=== PATIENT | male | born 1950 | race Caucasian/White ===

== ENCOUNTER 2018-11-03 08:28 | Inpatient (IN) ==
[2018-11-03 08:48] LABS: BASO# 0.09 X1000 (0.0-0.2); BASO% 0.8 % (0.0-0.8); EOS# 0.41 X1000 (0.0-0.7); EOS% 3.6 % (0.0-10.0); HEMOGLOBIN 12.9 g/dL (14.0-18.0); IMM GRAN# 0.04 X1000 (0.0-0.04); IMM GRAN% 0.4 % (0.0-0.5); LYMPH# 2.67 X1000 (1.2-3.4); LYMPH% 23.6 % (20.5-51.1); MCH 32.1 PG (27-31); MCHC 32.3 g/dL (33-37); MCV 99.5 FL (81-99); MONO# 1.02 X1000 (0.11-0.59); MPV 9.9 FL (7.4-10.4); NEUT# 7.06 X1000 (1.4-6.5); NEUT% 62.6 % (42.2-75.2); PLT 322 X1000 (130-400); RBC 4.02 XMIL (4.7-6.1); RDW 12.8 % (11.5-14.5); WBC 11.29 X1000 (4.8-10.8)
[2018-11-03 09:21] LABS: ALBUMIN 4.4 g/dL (3.5-5.0); CALCIUM 9.1 mg/dL (8.8-10.2); CREATININE 1.3 mg/dL (0.7-1.2); POTASSIUM 4.5 mmol/L (3.5-5.1); TOTAL BILIRUBIN 0.4 mg/dL (0.20-1.00); TOTAL PROTEIN 7.6 g/dL (6.3-8.3)
--- NOTE | 2018-11-03 10:14 | EKG Report ---
Test Performed on : 11/03/2018 08:51:38 AM Test Reason : vomiting Blood Pressure : / mmHG Vent. Rate : 081 BPM Atrial Rate : 081 BPM P-R Int : 210 ms QRS Dur : 150 ms QT Int : 400 ms P-R-T Axes : 061 086 045 degrees QTc Int : 464 ms Sinus rhythm. with 1st degree AV block. Right bundle branch block Abnormal ECG When compared with ECG of 08-JUL-2017 13:46, premature ventricular complexes. are no longer present Unconfirmed Result
--- NOTE | 2018-11-03 10:22 | Diag Imaging Result Doc PS360 ---
US ABDOMEN-COMPLETE - 11/03/2018 INDICATION: hx of AAA, discomfort COMPARISON: 06/21/2018 FINDINGS: There has been significant increase in size of the fusiform infrarenal abdominal aortic aneurysm. This now measures 4.2 x 4.1 cm. No fluid collection. Severe fatty change of the liver. The gallbladder, pancreas, and spleen are normal. There is a left renal cyst measuring 2.5 cm. Otherwise both kidneys are normal. Common bile duct measures 4 mm. IVC and main portal vein are patent. IMPRESSION: 1. Enlarging abdominal aortic aneurysm. Consider a CT angiogram of the aorta to exclude a dissection. No fluid collections. 2. Severe hepatic steatosis. Electronically signed by Compa Champagne 11/03/2018 10:19 AM
--- NOTE | 2018-11-03 10:23 | Diag Imaging Result Doc PS360 ---
CHEST-1 VIEW - 11/03/2018 INDICATION: vomiting COMPARISON: None FINDINGS: The lungs are normally expanded and clear. Heart size and mediastinal contours are normal. No pneumothorax or pleural effusion. IMPRESSION: Negative exam. Electronically signed by Compa Champagne 11/03/2018 10:20 AM
--- NOTE | 2018-11-03 11:30 | Diag Imaging Result Doc PS360 ---
EXAM: CT ABDOMEN/PELVIS W/O CONTRAST 11/03/2018 HISTORY: enlarging AAA, allergic to contrast TECHNIQUE: This exam was performed using automated exposure control, adjustment of mA or kV according to patient size, and/or use of iterative reconstruction technique. COMMENT: There is minimal platelike atelectasis or fibrosis in the right costophrenic sulcus. This was not present on 06/25/2017. There is some perinephric stranding bilaterally. This was also present on the previous study. There are vascular calcifications in both kidneys. There is extensive atherosclerotic calcification in the abdominal aorta. There is an infrarenal abdominal aortic aneurysm measuring 4.6 x 4.5 cm. There are bilateral common iliac stents. No periaortic inflammatory changes or fluid collections are demonstrated. There is no evidence of significant adenopathy. Compared to the previous examination the AP diameter of the aorta has increased from 4.2 to 4.6 cm and the transverse from 4 to 4.5 cm. There is no evidence of appendicitis. There is no evidence of free fluid. The urinary bladder is not distended. There are degenerative disc changes throughout the lumbar spine. The regional skeleton is stable in appearance. IMPRESSION: Slight enlargement in abdominal aortic aneurysm. Otherwise stable since 06/25/2017. Electronically signed by Frederic Russo 11/03/2018 11:28 AM
[2018-11-03 11:35] LABS: BILIRUBIN URINE 1+ (NEGATIVE); BLOOD URINE NEGATIVE (NEGATIVE); CLARITY CLEAR (CLEAR); COLOR AMBER; GLUCOSE URINE NEGATIVE (NEGATIVE); KETONE URINE 1+(Small) mg/dL (NEGATIVE); LEUKOCYTES URINE TRACE (NEGATIVE); NITRITE URINE POSITIVE (NEGATIVE); PH URINE 6.5; PROTEIN URINE 1+(30 mg/dL) mg/dL (NEGATIVE); UROBILINOGEN URINE 1 mg/dL
[2018-11-03] MEDS ORDERED: ROCEPHIN 1 GM in NS 50 ML IV ONE (11:36)
[2018-11-03 11:48] LABS: URINE BACTERIA 2+ /HFP; URINE CAST NONE SEEN /LPF; URINE CRYSTAL NONE SEEN /HPF; URINE EPITHELIAL CELLS <10 /HPF (<10); URINE RBC <10 /HPF (<10); URINE SOURCE CLEAN CATCH; URINE WBC <10 /HPF (<10); URINE YEAST NONE SEEN /HPF
--- NOTE | 2018-11-03 11:56 | PROVIDER DOCUMENTATION ---
This chart was entered by Nela Rahman Scribe, acting as scribe for Joe Babb MD. HPI-Abdominal Pain/GI Problem - General Chief Complaint: Nausea/Vomiting Stated Complaint: N/V Time Seen by Provider: 11/03/18 08:31 Source: patient Allergies/Adverse Reactions: Patient Allergies Allergy/AdvReac Type Severity Reaction Status Date / Time Iodinated Contrast Media Allergy Severe ANAPHYLAXIS Verified 07/09/17 07:12 [Iodinated Contrast Media - IV Dye] Home Medications: Home Medication List Medication Instructions Recorded Confirmed Last Taken Type BENAZEpril [Lotensin] 20 mg PO DAILY 09/20/13 11/03/18 07/08/17 09:00 History Celecoxib [Celebrex] 200 mg PO DAILY 09/20/13 11/03/18 07/08/17 09:00 History Citalopram Hydrobromide [Celexa] 20 mg PO DAILY 09/20/13 11/03/18 07/08/17 09:00 History Ergocalciferol (Vitamin D2) 50,000 unit PO SA 07/08/17 11/03/18 07/04/17 History [Vitamin D2] Glucosam/Chond/Hyalu/Cf Borate 1 each PO DAILY 07/08/17 11/03/18 07/08/17 09:00 History [Move Free Joint Health Tablet] Multivitamin with Minerals [One 1 each PO DAILY 07/08/17 11/03/18 07/08/17 09:00 History Daily Adults] Tramadol HCl/Acetaminophen 1 each PO BID PRN PRN 07/08/17 11/03/18 07/08/17 09:00 History [Tramadol-Acetaminophn 37.5-325] - History of Present Illness-ABD Nature of Presenting Problems: 68 yom presents to the ed with c/o dizziness, diaphoresis and n/v x1 this am @ 0800am. pt sts had similar sx 1 week prior and it resolved on its on and no tx was sought. He also noted that he has been feeling intermittent "shocks" in his chest that radiate through his body when he has these episodes. pt on exam is back to baseline and feels well. pt is nontoxic in appearance. pt has hx of AAA and is checked every 6 months and has had no change with last check up. Abdominal Pain Onset Location: reports: generalized abdomen Quality of Pain: reports: cramping (with nausea) Severity in ED: reports: moderate Onset/Duration: reports: this morning (0800am) Timing: reports: gone now Activities at Onset: reports: light activity Exposure to sick contacts?: No Modifying Factors: improves with: nothing Associated Symptoms: reports: chest pain (shocks from chest radiating through body), diaphoresis, dizziness, nausea, vomiting. denies: back/neck pain, diarrhea, fever/chills, headaches, shortness of breath Last BM: last night Dark Stools Present?: reports: none noticed Rectal Bleeding: reports: none # of Diarrhea Episodes: 0 Rectal Pain: reports: none # of Vomiting Episodes: 1 Emesis Description: reports: other (clear/yellow) Bruising or Bleeding Gums?: No Similar Symptoms Previously?: Yes (1 week prior and did not seek tx) Recently seen or treated by another doctor?: No Review of Systems - Adult - REVIEW OF SYSTEMS - ADULT Constitutional: denies: chills, fever Eyes: reports: no symptoms reported Ears, Nose, Mouth & Throat: reports: no symptoms reported Cardiovascular: denies: chest pain, palpitations, syncope Respiratory: denies: cough, shortness of breath, wheezing Gastrointestinal: reports: see HPI, abdominal pain, nausea, vomiting. denies: diarrhea Genitourinary: reports: no symptoms reported Musculoskeletal: denies: back pain, neck pain Integumentary: reports: no symptoms reported Neurological: reports: see HPI, dizziness/vertigo. denies: headache/migraines, slurred speech, tremors Psychiatric: reports: no symptoms reported Endocrine: reports: no symptoms reported Hematologic/Lymphatic: reports: no symptoms reported Allergic/Immunologic: reports: no symptoms reported All Other Systems: Reviewed and Negative Past History - Adult - PAST MEDICAL HISTORY-ADULT Review of Records: reports: Old Records Reviewed, Nursing Assessment Review, Medications Reviewed, Social history reviewed & non-contributory. Major Childhood Illnesses: reports: history unknown Cardiovascular: reports: HTN, other (AAA) Respiratory: reports: sleep apnea Gastrointestinal: reports: denies history Genitourinary: reports: denies history Musculoskeletal: reports: denies history Hand Dominance: Right Handed Neurological: reports: denies history Psychiatric: reports: anxiety Endocrine/Immune: reports: denies history - PRIOR SURGERIES/PROCEDURES Surgical/Procedure History: reports: hernia repair - PRIOR HOSPITALIZATIONS Prior Hospitalizations: reports: none - IMMUNIZATION STATUS Childhood Immunizations: See Nurse Assessment Flu Vaccine: See Nurse Assessment - FAMILY HISTORY Family History: reviewed, not pertinent - SOCIAL HISTORY Smoking: cigarettes, greater than 1 pack/day Provider spent 3-5 mins advising pt. on dangers of tobacco.: Discussed manners to quit use, and f/u contacts for add'l counseling. Substance Use: denies Alcohol Use Frequency: never Living Situation: family Physical Exam-General - PHYSICAL EXAM-ADULT Initial Vital Signs Reviewed: Yes - CONSTITUTIONAL General Appearance: appears well, alert, no apparent distress (pt sts all sx have resolved on exam) - EYES Eyes: PERRL/EOMI, pink conjunctivae - HEAD, EARS, NOSE, MOUTH & THROAT HENMT: moist mucous membranes, normal ENT inspection - NECK Neck: non-tender, full range of motion, supple, normal inspection - RESPIRATORY Respiratory: chest non-tender, lungs clear, normal breath sounds - CARDIOVASCULAR Cardiovascular: normal peripheral pulses, regular rate, rhythm - GASTROINTESTINAL (ABDOMEN) Abdominal Exam: normal bowel sounds, non tender, soft - GENITOURINARY Male Genitalia: deferred Rectal Exam: deferred Hemoccult Exam: deferred - LYMPHATIC Lymphatic: no adenopathy - MUSCULOSKELETAL Back Exam: normal inspection, no CVA tenderness, no vertebral tenderness Extremity: normal range of motion, non-tender, normal gait, normal inspection - SKIN Integumentary: normal color, normal turgor, warm/dry - NEUROLOGIC Neurologic: grossly normal, no motor/sensory deficits - PSYCHIATRIC Psych/Mental Status: normal mood/affect, normal thought content, normal thought process, oriented x 3 Progress - PLAN OF CARE/RESULTS Progress/Plan/Lab Results: Vital Signs - 8 hr 11/03/18 08:25 Temperature 97.7 F Pulse Rate 88 Respiratory Rate 20 Blood Pressure 120/70 O2 Sat by Pulse Oximetry 98 Laboratory Results - last 24 hr 11/03/18 11/03/18 08:35 08:35 WBC 11.29 H RBC 4.02 L Hgb 12.9 L Hct 40.0 L MCV 99.5 H MCH 32.1 H MCHC 32.3 L RDW Std Deviation 12.8 Plt Count 322 MPV 9.9 Immature Gran % (Auto) 0.4 Neut % (Auto) 62.6 Lymph % (Auto) 23.6 Burt % (Auto) 9.0 Eos % (Auto) 3.6 Baso % (Auto) 0.8 Immature Gran # (Auto) 0.04 Neut # (Auto) 7.06 H Lymph # (Auto) 2.67 Burt # (Auto) 1.02 H Eos # (Auto) 0.41 Baso # (Auto) 0.09 Amylase 51 Orders Category Date Time Status Nursing- Obtain EKG ONCE Care 11/03/18 08:32 Active CHEST-1 VIEW [RAD] Stat Exams 11/03/18 08:32 Ordered US ABDOMEN-COMPLETE [US] Stat Exams 11/03/18 09:00 Ordered AMYLASE [CHEM] Stat Lab 11/03/18 08:35 Completed CBC WITH ELECTRONIC DIFF [HEME] Stat Lab 11/03/18 08:35 Completed COMPREHENSIVE METABOLIC PANEL [CHEM] Stat Lab 11/03/18 08:35 Received LIPASE [CHEM] Stat Lab 11/03/18 08:35 Received PRO B-NATRIURETIC PEPTIDE Stat Lab 11/03/18 08:35 Received TROPONIN T Stat Lab 11/03/18 08:[address] W/POSS RFLX CULT [URINALYSIS] Stat Lab 11/03/18 08:34 Uncollected EKG [EKG] Stat Ther 11/03/18 08:32 Ordered Result Diagrams: 11/03/18 08:35 11/03/18 08:35 - REASSESSMENT Reassessment #1 Time Reassessed: 10:42 Status: unchanged - EKG 1 Time of EKG reading by physician:: 08:51 EKG Read and Signed by:: Joe Babb EKG Interpretation (*Must complete 3 of following elements*): Abnormal Rate: 81 Rhythm: sinus rhythm with 1st degree av block [place]: normal QRS: RBB SC Interval: normal ST Wave: normal - XRAY 1 XRAY: Bilateral XRAY Study: Chest Impression: See EMR Report (CHEST-1 VIEW - 11/03/2018 INDICATION: vomiting COMPARISON: None FINDINGS: The lungs are normally expanded and clear. Heart size and mediastinal contours are normal. No pneumothorax or pleural effusion. IMPRESSION: Negative exam. Electronically signed by Compa Champagne 11/03/2018 10:20 AM 11/03/18 1020 Interpreting Physician: Compa Champagne MD Dictated Date/Time: 11/03/18 1020 cc: Joe Babb MD; None,PCP) - CT/MRI 1 CT Study: Abdomen, Pelvis Impression: See EMR Report (EXAM: CT ABDOMEN/PELVIS W/O CONTRAST 11/03/2018 HISTORY: enlarging AAA, allergic to contrast TECHNIQUE: This exam was performed using automated exposure control, adjustment of mA or kV according to patient size, and/or use of iterative reconstruction technique. COMMENT: There is minimal platelike atelectasis or fibrosis in the right costophrenic sulcus. This was not present on 06/25/2017. There is some perinephric stranding bilaterally. This was also present on the previous study. There are vascular calcifications in both kidneys. There is extensive atherosclerotic calcification in the abdominal aorta. There is an infrarenal abdominal aortic aneurysm measuring 4.6 x 4.5 cm. There are bilateral common iliac stents. No periaortic inflammatory changes or fluid collections are demonstrated. There is no evidence of significant adenopathy. Compared to the previous examination the AP diameter of the aorta has increased from 4.2 to 4.6 cm and the transverse from 4 to 4.5 cm. There is no evidence of appendicitis. There is no evidence of free fluid. The urinary bladder is not distended. There are degenerative disc changes throughout the lumbar spine. The regional skeleton is stable in appearance. IMPRESSION: Slight enlargement in abdominal aortic aneurysm. Otherwise stable since 06/25/2017. Electronically signed by Frederic Russo 11/03/2018 11:28 AM 11/03/18 1128 Interpreting Physician: Frederic Russo MD Dictated Date/Time: 11/03/18 1123 cc: Joe Babb MD; None,PCP) - ULTRASOUND (By Radiology) 1 US Study: Abdomen Impression: See EMR Report (US ABDOMEN-COMPLETE - 11/03/2018 INDICATION: hx of AAA, discomfort COMPARISON: 06/21/2018 FINDINGS: There has been significant increase in size of the fusiform infrarenal abdominal aortic aneurysm. This now measures 4.2 x 4.1 cm. No fluid collection. Severe fatty change of the liver. The gallbladder, pancreas, and spleen are normal. There is a left renal cyst measuring 2.5 cm. Otherwise both kidneys are normal. Common bile duct measures 4 mm. IVC and main portal vein are patent. IMPRESSION: 1. Enlarging abdominal aortic aneurysm. Consider a CT angiogram of the aorta to exclude a dissection. No fluid collections. 2. Severe hepatic steatosis. Electronically signed by Compa Champagne 11/03/2018 10:19 AM 11/03/18 1019 Interpreting Physician: Compa Champagne MD Dictated Date/Time: 11/03/18 1017 cc: Joe Babb MD; None,PCP) - CONSULTS/PCP/HOSPITALIST Notification #1 *Consult/PCP/Hospitalist*: dr brent bolaños Time Discussed: 11:37 (pt will go to [facility]) Reason/Comments: phone consult #2 Consult: Dr Clark Time Discussed: 11:55 Consult Disposition: Will see in ED, Admit Departure - Departure Date of Disposition Decision: 11/03/18 Time of Disposition Decision: 11:55 DIAGNOSIS: Dizziness, Tobacco use disorder, AAA (abdominal aortic aneurysm) without rupture, Atypical chest pain, UTI (urinary tract infection) N&V (nausea and vomiting) Qualifiers: Vomiting type: unspecified Vomiting Intractability: non-intractable Qualified Code(s): R11.2 - Nausea with vomiting, unspecified Disposition: ADMITTED INPATIENT 09 Certified Medical Emergency: Emergent Condition: Fair Referrals and Follow-Ups: None,PCP [Primary Care Provider] - - Critical Care Note This patient required my direct & personal management of CC.: No Attestation - Physician/ NICK Attestation Patient care was provided by Advanced Practice Provider:: No The physician spent face to face time with patient:: Yes Advanced Practice Provider documentation review:: Supervising physician onsite and consulted in the evaluation and care of this patient. The physician did have a face to face encounter with the patient. This chart was documented by the indicated scribe, (Nela Rahman Scribe) and accurately reflects the services I performed and decisions made by me, Joe Babb MD, as attested by the provider's signature.
[2018-11-03] MEDS ORDERED: TYLENOL PO PRN (13:45)
[2018-11-03] MEDS ORDERED: NITROGLYCERIN SL PRN (13:45)
[2018-11-03] MEDS ORDERED: ZOFRAN IV PRN (13:45)
--- NOTE | 2018-11-03 14:13 | EKG Report ---
Test Performed on : 11/03/2018 1:59:24 PM Test Reason : cp Blood Pressure : / mmHG Vent. Rate : 076 BPM Atrial Rate : 097 BPM P-R Int : 000 ms QRS Dur : 138 ms QT Int : 416 ms P-R-T Axes : 068 089 055 degrees QTc Int : 468 ms Sinus rhythm. with 2nd degree AV block (Mobitz I). Right bundle branch block Abnormal ECG When compared with ECG of 03-NOV-2018 08:51, (Unconfirmed) Sinus rhythm. is now with 2nd degree AV block (Mobitz I). Confirmed by Haleigh BIRCH, Devon Shane ([id number]) on 11/03/2018 5:28:21 PM
--- NOTE | 2018-11-03 15:09 | HISTORY AND PHYSICAL ---
PRIMARY CARE PROVIDER: Dr. Keenan Jin. GENERAL SURGEON: Dr. Ronquillo. CHIEF COMPLAINT: Nausea and vomiting. HISTORY OF PRESENT ILLNESS: Mr. Quick is a 68-year-old gentleman who carries a past medical history of hypertension, anxiety, and sleep apnea, however, his CPAP has been broken, and it will be another year before he can get another one, an AAA for which Dr. Guillermo Ronquillo has been watching. He has another appointment with him in November. He has also had bilateral stenting to his iliac with Dr. Ronquillo. He reported for the second time this week he broke out in a cold sweat, had some dizziness, and nausea with one episode of vomitus while he was at work today. He told the ED physician that he had been having some chest discomfort. However, when I asked him about it, he adamantly denied any chest pain, palpitations, fever, or chills. First sets of troponin's have been negative. They did an abdomen and pelvis CT on him that showed an increase in the size of his aortic aneurysm. Dr. Babb spoke with Dr. Gaming. We will work him up for chest pain rule out, and consult Dr. Gaming and Dr. Ronquillo to assess his AAA. He will be transferred to [facility] at this time. PAST MEDICAL HISTORY: 1. Hypertension. 2. Anxiety. 3. Sleep apnea. Patient uses CPAP machine, however, it is broken and it will be another year before he can get another one. 4. AAA. PAST SURGICAL HISTORY: 1. Hernia repair x3. 2. Bilateral iliac stenting. FAMILY HISTORY: Reviewed and noncontributory. SOCIAL HISTORY: The patient is . No children. He smokes a pack of cigarettes per day. He drinks beer every day. He states the quantity depends on how late he stays up. He works at [employer]. REVIEW OF SYSTEMS: Twelve-point review of systems completely negative except for those mentioned in HPI. HOME MEDICATIONS: 1. Lotensin. 2. Celebrex. 3. Celexa. 4. Vitamin D2. 5. Move Free Joint Voucherlink. 6. Multivitamins. 7. Tramadol. PHYSICAL EXAMINATION: VITAL SIGNS: Temperature is 97.7 degrees, heart rate 92, respirations 19, blood pressure 138/81, and O2 is 98% on room air. GENERAL: Mr. Quick is not a forthcoming gentleman, but he is lying on the stretcher in no acute distress. HEENT: Atraumatic, normocephalic. PERRL. NECK: Supple. Trachea midline. CARDIOVASCULAR: S1, S2 appreciated. No murmurs, gallops, or rubs noted. RESPIRATORY: Lung sounds clear bilaterally. GI: Soft, nontender, and nondistended. Positive bowel sounds times four quadrants. EXTREMITIES: Negative for edema. SKIN: He does have an area of breakdown over his upper right chest. He states it is from an allergy from the metal in his badge alvarado, and he treats it himself at home, and does not appear to be infected. NEUROLOGIC: No focal deficits noted. DIAGNOSTIC DATA: Abdominal ultrasound showed an enlarging abdominal aortic aneurysm, severe hepatic steatosis. CT scan of the abdomen showed slight enlargement in the abdominal aortic aneurysm. LABORATORY DATA: White count 11, hemoglobin and hematocrit 12 and 40, and platelet count is 322,000. Sodium 140, potassium 4.5, BUN 17, creatinine 1.3, blood glucose is 171. Troponin was less than 0.010. Urinalysis was positive for nitrates and 2+ bacteria. ASSESSMENT AND PLAN: 1. Chest pain rule out. First set of cardiac enzymes were negative. The patient did tell the ED physician that he was having some chest discomfort. However, upon examination, he adamantly denies any chest discomfort. Associated symptoms were cold sweats, dizziness, nausea, and one episode of vomitus. We will go ahead and trend his cardiac enzymes. Get an echocardiogram. Ask Cardiology to see him. He may need clearance for AAA repair. 2. Enlarging AAA. This will be evaluated by Dr. Brooks Gaming and Dr. Ronquillo. 3. Urinary tract infection. We will continue with IV Rocephin. 4. Hypertension. Continue home medications. 5. Anxiety. We will continue home medications. 6. Acute kidney injury. We will continue with IV fluids. Recheck his labs in the morning. 7. Further recommendation to follow physician evaluation, laboratory data and diagnostic data. Dictated by VERONICA Ferguson for Keenan Clark MD cc: MD Keenan Fregoso MD [facility]
--- NOTE | 2018-11-03 23:06 | CONSULTATION ---
DATE OF CONSULTATION: 11/03/2018 IMPRESSION: 1. Episode of lightheadedness and diaphoresis with associated nausea and vomiting x1. 2. Periods of bradycardia with sinus rhythm and Mobitz I (Wenckebach). I suspect this is very likely vagally mediated. There has been no syncope. 3. Peripheral vascular disease. A. History of abdominal aortic aneurysm measuring 4.6 cm on latest study. B. Status post previous bilateral iliac artery stents. 4. Hyperlipidemia. 5. Obstructive sleep apnea. 6. Chronic ongoing cigarette use. RECOMMENDATIONS: 1. Followup echocardiography. 2. Telemetry observation overnight. 3. Aspirin p.o. daily. 4. Followup lipid profile and initiate statin therapy. 5. Smoking cessation strongly advised. 6. If clinically stable, it is reasonable for the patient to be discharged home tomorrow. Recommend scheduling outpatient Lexiscan myocardial perfusion study for screening purposes. HISTORY: This is a 68-year-old white male with past history of peripheral vascular disease, abdominal aortic aneurysm, previous bilateral iliac artery stenting, hyperlipidemia, obstructive sleep apnea, and chronic cigarette use. He was admitted to the emergency room at [facility] after he presented with episode of lightheadedness and diaphoresis, with associated nausea and an episode of vomiting. 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 It was an air-conditioned facility where he was working. He denies any chest pain or palpitations. He did not pass out. He relates a similar episode about a week ago of lightheadedness, diaphoresis and some nausea, but he did not vomit on previous episode. There has been no chest pain at all. He has no history of coronary disease. PAST MEDICAL HISTORY: 1. Hypertension. 2. Peripheral artery disease. A. Abdominal aortic aneurysm measuring 4.6 cm on most recent study. B. Status post bilateral iliac artery stenting. 3. Hyperlipidemia. 4. Obstructive sleep apnea. PAST SURGICAL HISTORY: Also includes previous hernia repair. ALLERGIES: He is allergic or intolerant to iodinated contrast media. MEDICATIONS: Prior to admission as listed. 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 He currently is working at [employer]. He is originally from [place]. He is . He smokes a pack cigarettes per day. He drinks beer daily. FAMILY HISTORY: Positive for coronary disease. REVIEW OF SYSTEMS: Pulmonary: Negative. Gastrointestinal: Noncontributory beyond history of present illness. Constitutional: Noncontributory beyond history of present illness. Remainder of review of systems negative/noncontributory beyond history of present illness, with 14 total systems reviewed. PHYSICAL EXAMINATION: An older white male in no distress on room air. Blood pressure 154/104, heart rate 88, oxygen saturation 97% on room air.HEENT: Extraocular movements appear intact. Mucous membranes moist. Neck is supple, without jugular venous distention. There are no carotid bruits. Chest is clear to auscultation bilaterally. Cardiac exam reveals a regular rate and rhythm without appreciable murmur or gallop. Abdomen is soft. Bowel sounds are normal. Extremities are without edema. Neurologic exam reveals him to be alert and fully oriented. Speech is fluent. He moves all 4 extremities equally well. Skin is warm and dry. Psychiatric exam reveals mood to be appropriate. DIAGNOSTIC DATA: Twelve-lead EKG demonstrates sinus rhythm with second-degree AV block, Mobitz I (Wenckebach); right bundle branch block. LABORATORY DATA: Includes a white blood cell count of 11.2, hematocrit 40.0, hemoglobin 12.9, platelet count 322,000. Sodium 140, potassium 4.5, chloride 102, carbon dioxide 24, BUN 17, creatinine 1.3, glucose 171. Troponin T less than 0.01. Followup troponin T less than 0.01. cc: Wes Drummond MD
--- NOTE | 2018-11-04 03:09 | GENERAL SURGERY CONSULTATION ---
DATE: 11/03/2018 CHIEF COMPLAINT: Dizziness HISTORY OF PRESENT ILLNESS: A 68-year-old gentleman who was admitted with vague neurologic complaints, a presyncopal event and dizziness. He called an ambulance. He has a history of an abdominal aortic aneurysm that is followed as an outpatient by Dr. Ronquillo. He also has a history of iliac stents placed a year ago by Dr. Ronquillo, for iliac occlusive disease. He denies any back pain or abdominal pain. No lower extremity pain. He is being worked up cardiovascularly for these vague symptoms. He had a CT scan that showed a 5 mm increase in his aneurysm when compared to a scan a year ago. MEDICAL HISTORY: 1. Hypertension. 2. Anxiety. 3. Sleep apnea. 4. Abdominal aortic aneurysm. 5. Peripheral vascular disease. SURGICAL HISTORY: He has had multiple umbilical hernia repairs, and kissing iliac stents by Dr. Ronquillo. FAMILY HISTORY: Reviewed, noncontributory. REVIEW OF SYSTEMS: Ten-point review of systems negative other than what is mentioned in HPI. SOCIAL HISTORY: He is . He is retired, but works part-time. He drinks beer daily. He does smoke. PHYSICAL EXAMINATION: He is afebrile. Pulse 88, blood pressure 154/104, oxygen saturation is 97%.General: He is alert, in no acute distress. HEENT: He has no scleral icterus. No cervical mass. Cardiovascular: Normal rate. Pulmonary: No increased work of breathing. Abdomen is soft. There is no pulsatile mass. Nontender, nondistended. Integument is warm and dry. He has appropriate affect. Neurologic: There are no focal neurologic deficits on exam. Peripheral vascular: No lower extremity edema. He has palpable pedal, popliteal and femoral pulses. No inguinal adenopathy. LABORATORY DATA: White count 11, hematocrit 40, platelets 322,000. Creatinine is 1.3. LFTs are normal. Troponins have been negative. Amylase and lipase normal. Urinalysis is positive for nitrites and white cells. DIAGNOSTIC DATA: I reviewed the CT scan of his abdomen that shows a 4.6 x 4.5 cm infrarenal aneurysm, with iliac stents. ASSESSMENT AND PLAN: A 68-year-old gentleman with gradually increasing, enlarging abdominal aortic aneurysm, here for peripheral vascular disease. I do not see any acute change. This is currently expected increase in size. I would recommend continued medical workup of his neurologic symptoms. Unclear if he has had a carotid duplex, but this would be reasonable as well. I will follow him along closely. I will discuss with Dr. Ronquillo. cc: Suraj Gaming MD [facility]
--- NOTE | 2018-11-04 04:35 | ECHO REPORT ---
ORDER DATE: 11/03/2018 INDICATION: Chest pain. FINDINGS: 1. Right atrium appears normal in size. 2. Mild tricuspid regurgitation. Insufficient data to estimate right ventricular systolic pressure. 3. Normal right ventricle size and systolic function. 4. No significant pulmonic insufficiency. 5. Normal left atrial size with a dimension of 3.4, hemodynamics of 20. 6. No mitral prolapse. No mitral stenosis. No significant mitral regurgitation. 7. Normal left ventricle size, end-diastolic dimension of 4.2. Normal wall thicknesses with a posterior and interventricular septal wall thickness of 1.1 and 0.9 cm, respectively. Normal left ventricular systolic function. Estimated ejection fraction of 60% with normal wall motion. 8. Aortic valve opens well. No evidence of stenosis or insufficiency. 9. Aorta appears normal in visualized segments. 10. No pericardial effusion seen. cc: Chance Antunez MD
[2018-11-04 05:56] LABS: BASO# 0.06 X1000 (0.0-0.2); BASO% 0.5 % (0.0-0.8); EOS# 0.57 X1000 (0.0-0.7); EOS% 5.1 % (0.0-10.0); IMM GRAN# 0.05 X1000 (0.0-0.04); IMM GRAN% 0.4 % (0.0-0.5); LYMPH% 20.5 % (20.5-51.1); MCH 32.8 PG (27-31); MCHC 33.3 g/dL (33-37); MCV 98.5 FL (81-99); MONO# 1.01 X1000 (0.11-0.59); MPV 9.8 FL (7.4-10.4); NEUT# 7.22 X1000 (1.4-6.5); NEUT% 64.5 % (42.2-75.2); PLT 283 X1000 (130-400); RBC 3.96 XMIL (4.7-6.1); RDW 12.8 % (11.5-14.5); WBC 11.21 X1000 (4.8-10.8)
[2018-11-04 06:32] LABS: AGAP 11; ALBUMIN 4.3 g/dL (3.5-5.0); BUN 15 mg/dL (8-22); CALCIUM 8.9 mg/dL (8.8-10.2); CHLORIDE 102 mmol/L (98-107); COSMO 281; ESTIMATED GFR > 60; GLUCOSE 107 mg/dL (70-104); POTASSIUM 4.3 mmol/L (3.5-5.1); SODIUM 140 mmol/L (136-145); TCO2 27 mmol/L (25-35); TOTAL BILIRUBIN 0.43 mg/dL (0.20-1.00); TOTAL PROTEIN 7.1 g/dL (6.3-8.3)
[2018-11-04 06:33] LABS: ALB/GLOB RATIO 1.5; ALKALINE PHOSPHATASE 66 U/L (32-122); CHOLESTEROL 137 mg/dL (0-200); GOT 18 U/L (10-34); GPT 15 U/L (10-44); HDL 50 mg/dL (35-55); LDL 64 mg/dL; TRIGLYCERIDES 115 mg/dL (39-160); VLDL 23 mg/dL
[2018-11-04] MEDS ORDERED: PRILOSEC PO SCH (07:00)
--- NOTE | 2018-11-04 07:15 | Diag Imaging Result Doc PS360 ---
EXAM: CHEST-PORTABLE INDICATION: Chest Pain TECHNIQUE: One view COMPARISON: 11/03/2018 FINDINGS: The lungs are grossly clear. There is no discrete pleural fluid collection or pneumothorax. The cardiomediastinal silhouette and central vasculature are grossly unremarkable. IMPRESSION: No evidence of acute pathology by plain radiograph. Electronically signed by Cecilio Cabral 11/04/2018 7:12 AM
--- NOTE | 2018-11-04 07:25 | EKG Report ---
Test Performed on : 11/04/2018 07:01:37 AM Test Reason : arrhythmia Blood Pressure : / mmHG Vent. Rate : 079 BPM Atrial Rate : 079 BPM P-R Int : 222 ms QRS Dur : 136 ms QT Int : 394 ms P-R-T Axes : 063 088 057 degrees QTc Int : 451 ms Sinus rhythm. with 1st degree AV block. with occasional premature ventricular complexes. Right bundle branch block Abnormal ECG When compared with ECG of 03-NOV-2018 13:59, premature ventricular complexes. are now present Sinus rhythm. is no longer with 2nd degree AV block (Mobitz I). Confirmed by aHleigh BIRCH, Devon Shane ([id number]) on 11/04/2018 8:32:52 AM
[2018-11-04] MEDS ORDERED: ASPIRIN PO SCH (09:00)
[2018-11-04] MEDS ORDERED: ROCEPHIN 1 GM in NS 50 ML IV SCH (12:15)
[2018-11-04 15:54] VITALS: BP 136/77
--- NOTE | 2018-11-04 17:44 | DISCHARGE SUMMARY ---
ADMISSION DATE: 11/03/2018 DISCHARGE DATE: 11/04/2018 PRIMARY CARE PHYSICIAN: He states his primary care doctor was Keenan Jin. GENERAL SURGEON: Dr. Vasyl Ronquillo. HISTORY: He came in with nausea vomiting. Mr. Quick is a 68-year-old gentleman who carried a past medical history of hypertension, anxiety, sleep apnea; however, he is on CPAP and his CPAP was broken and it will be another year before he will get another one. He has had AAA, abdominal aortic aneurysm, for which Dr. Ronquillo has been watching. He has another appointment with him in November. He has also had bilateral stenting to his iliac per Dr. Ronquillo. Reported for the 2nd time this week he broke out in a cold sweat, had some dizziness, nausea, 1 episode of vomiting when he was at work today. He was told in the emergency room that he had some chest discomfort and he admittedly denied any chest pain to the physician admitting him. No palpitations, fever, or chills. First sets of troponin were negative. He did have an abdominal and pelvic CT that showed an increase in size of the aortic aneurysm. Dr. Babb spoke with Dr. Gaming. They will work him up for chest pain. Plan was to work him up for chest pain and consult Dr. Gaming and Dr. Ronquillo to assess his abdominal aortic aneurysm. PAST MEDICAL HISTORY: 1. Hypertension. 2. Anxiety. 3. Sleep apnea. The patient uses CPAP machine; however, he states it is a broken and it will be another year before he gets a new one. 4. Abdominal aortic aneurysm, as above. PAST SURGICAL HISTORY: 1. Hernia repair x3. 2. Bilateral iliac stenting. HOSPITAL COURSE: So admitted with chest pain. Cardiac enzymes were negative. His abdominal ultrasound, enlarging abdominal aortic aneurysm and they recommended a CT angiogram of the aorta to exclude dissection. Had an echocardiogram on 11/03, yesterday. Normal right ventricular size. Mild tricuspid cusp regurgitation. Normal left ventricular size and dimensions. No mitral prolapse. No mitral stenosis. Normal left ventricular dimension. Ejection fraction 60%. He had normal wall thickness with a posterior and intraventricular septal wall thickness 1.[address] Gaming evaluated, reviewed the CT of the abdomen. It showed a 4 x 6 x 4 x 5 infrarenal aneurysm with iliac stents, so gradually increasing. Did not see any acute change. So, continue to manage medically and follow was his recommendations. Cardiology felt like he could be discharged home. He had no chest pain. No sign of cardiac ischemia. Blood pressure remained under good control. DISCHARGE MEDICATIONS: He will be on Lotensin 20 mg daily, aspirin 325 mg a day, Prilosec 20 mg a day. He gets his vitamin D2 33565 units daily, Celexa 20 mg a day, Celebrex 200 mg daily, multivitamin 1 a day. I think he takes tramadol at home 37.5/325 one b.i.d. p.r.n. FOLLOW UP: He will get follow up with his primary care and follow up with Dr. Vasyl Ronquillo, following his abdominal aortic aneurysm. cc: Almas Duggan MD
--- NOTE | 2018-11-04 19:15 | PROGRESS NOTE ---
DATE: 11/04/2018 SUBJECTIVE: Patient continues asymptomatic from a cardiovascular standpoint on room air. OBJECTIVE: Blood pressure is 135/84, heart rate 77, oxygen saturation 97% on room air. There is no significant jugular venous distention. Chest is clear to auscultation. Cardiac exam was a regular rate and rhythm without appreciable murmur or gallop. Extremities are without edema. LABORATORY DATA: Includes white blood cell count 11.2, hematocrit 39.0, hemoglobin 13.0, platelet count 283,000. Sodium 140, potassium 4.3, chloride 102, carbon dioxide 27, BUN 15, creatinine 1.0, glucose 107. Initial troponin less than 0.01. Followup troponin less than 0.01, and third followup troponin less than 0.01. Fasting triglycerides 115, total cholesterol 137, LDL cholesterol 64, HDL cholesterol 50. IMPRESSION: 1. Episode of lightheadedness and diaphoresis associated with nausea and vomiting. Probably vagally mediated symptoms at least as far as the lightheadedness is concerned. 2. Periods of bradycardia with sinus rhythm and Mobitz 1 Wenckebach rhythm. This is likely vagally mediated as well. There has been no syncope. 3. Peripheral vascular disease with history of abdominal aortic aneurysm measuring 4.6 cm on most recent study. 4. Hyperlipidemia. 5. Obstructive sleep apnea. 6. Chronic ongoing cigarette use. RECOMMENDATIONS: 1. Reasonable for patient to be discharged to home. 2. Continue aspirin p.o. daily. 3. Smoking cessation strongly advised. 4. Schedule outpatient Lexiscan sestamibi study for screening purposes. cc: Wes Drummond MD
--- NOTE | 2018-11-04 21:41 | GENERAL SURGERY PROGRESS NOTE ---
DATE: 11/04/2018 SUBJECTIVE/OBJECTIVE: Feels better. No pain in his legs, abdomen, or back. Dizziness for the most part is improved. Hemodynamically stable. LABORATORY DATA: White count 11, hematocrit 39. Creatinine is 1.0. Troponins have been negative. ASSESSMENT AND PLAN: This is a 68-year-old gentleman admitted with vague neurologic complaints, dizziness mostly. He had a slightly enlarged abdominal aortic aneurysm when compared to previous. We will follow him closely, but no plans for surgical intervention. He will need regular surveillance of his aorta going forward. cc: Suraj Gaming MD
== END 2018-11-04 18:25 | disposition home or self-care (01) | DRG 313 ==
LOC: P.ED 08:28 → SUATTDRO 08:29 → 2N 08:29
PROVIDERS: ATTEND Emergency Medicine